=== PATIENT | female | born 1975 | race African-American/Black ===

== ENCOUNTER 2016-10-03 22:41 | Emergency (ER) | payer BC ==
[~2016-10-03] VITALS: Ht 167.6 cm; Wt 129.7 kg
[~2016-10-03 22:41] MED LIST: ASPI81TA9 PO; HYDR-2666; HYDR-2868 PO; Metoprolol Tartrate PO; OLME1TAB3 PO; PROM25TA10
[2016-10-03 22:55] VITALS: BP 189/120
[2016-10-03 23:36] LABS: OBC FLU VALID
--- NOTE | 2016-10-03 23:37 | PHYS DOC ---
Past Medical History Past Medical History: Hypertension Additional Past Medical Histor: miscarriage, cardiomyopathy Past Surgical History: No Surgical History Alcohol Use: None Drug Use: None Adult General Chief Complaint Chief Complaint: COUGH HPI HPI Patient is a 41 year old female who presents to the emergency department stating that since Thursday she's had a cough congestion bilateral ear pain and a headache. She denies any shortness of air difficulty breathing. She is unsure whether she has had any fevers although states that she did when the symptoms first developed. Patient states she's been taken Tylenol for the pain and discomfort. She is unable to take ibuprofen or nonsteroidals due to elevation of blood pressure. Patient denies any sick contact. Patient also states that for the last 2 years around this time she has ended up with pneumonia and she just wants to make sure that this is not occurring. Review of Systems Review of Systems Constitutional: Denies fever or chills [] Eyes: Denies change in visual acuity, redness, or eye pain [] HENT: nasal congestion, bilateral ear pain. Denies sore throat [] Respiratory: cough denies shortness of breath [] Cardiovascular: No additional information not addressed in HPI [] GI: Denies abdominal pain, nausea, vomiting, bloody stools or diarrhea [] : Denies dysuria or hematuria [] Musculoskeletal: Denies back pain or joint pain [] Integument: Denies rash or skin lesions [] Neurologic: Denies headache, focal weakness or sensory changes [] Allergies Allergies Allergies Coded Allergies Type Severity Reaction Last Updated Verified Penicillins Allergy Intermediate 12/01/14 No levofloxacin Allergy Intermediate 12/18/14 No Physical Exam Physical Exam Constitutional: Well developed, well nourished, no acute distress, non-toxic appearance. [] HENT: Normocephalic, atraumatic, bilateral external ears normal, oropharynx moist, no oral exudates, nose normal. Bilateral tympanic membranes appear to be normal although the left appears to be slightly red. Throat with no erythematous no exudate noted. Eyes: PERRLA, EOMI, conjunctiva normal, no discharge. [] Neck: Normal range of motion, no tenderness, supple, no stridor. [] Cardiovascular:Heart rate regular rhythm, no murmur [] Lungs & Thorax: Bilateral breath sounds clear to auscultation [] Skin: Warm, dry, no erythema, no rash. [] Back: No tenderness Extremities: No tenderness, no cyanosis, no clubbing, ROM intact, no edema. [] Neurologic: Alert and oriented X 3, normal motor function, normal sensory function, no focal deficits noted. [] Psychologic: Affect normal, judgement normal, mood normal. [] Current Patient Data Vital Signs Vital Signs Date Time Temp Pulse Resp B/P Pulse Ox O2 Delivery O2 Flow Rate FiO2 10/03/16 22:55 98.3 80 18 97 Room Air 98.3 Lab Values Laboratory Tests Test 10/03/16 23:10 Influenza Type A Antigen Negative (NEGATIVE) Influenza Type B Antigen Negative (NEGATIVE) EKG EKG [] Radiology/Procedures Radiology/Procedures [] Course & Med Decision Making Course & Med Decision Making Pertinent Labs and Imaging studies reviewed. (See chart for details) Influenza swabs were negative. Patient will be placed on Zithromax with recommendations for Tylenol for pain and discomfort. Also recommended following up with her primary care physician in the next 3-5 days. Signs and symptoms to return back to emergency department as been provided. Encourage plenty of fluids. Patient agrees with discharge instructions treatment regimens and follow -up recommendations. [] Dragon Disclaimer Dragon Disclaimer This electronic medical record was generated, in whole or in part, using a voice recognition dictation system. Departure Departure Impression: Primary Impression: Upper respiratory infection Disposition: 01 HOME, SELF-CARE Condition: STABLE Referrals: UNKNOWN PCP NAME (PCP) Patient Instructions: Upper Respiratory Infection, Adult, [id number] Additional Instructions: Activity as tolerated. Tylenol for pain and discomfort. Medication as prescribed. Follow-up through primary care physician in the next 3-5 days. Return back to emergency prior signs symptoms of become worse. Scripts Azithromycin (Zithromax)250 Mg [id number] Mg PO DAILY ANTI-BIOTIC #6 TAB Ref 0 2 tablets today then 1 tablet daily until gone Prov:KAMILLE DON NP 10/03/16 KAMILLE DON NP Oct 03, 2016 23:37
[2016-10-03] MEDS ORDERED: AZIT250T PO (23:49)
[2016-10-04] MEDS ORDERED: ACETAMINOPHEN 500 MG TABLET PO ONE (00:15)
== END 2016-10-04 00:09 | disposition home or self-care (01) ==
LOC: ER 22:41
DX: J06.9 Acute upper respiratory infection, unspecified (principal); H92.03 Otalgia, bilateral; I11.9 Hypertensive heart disease without heart failure; Z88.0 Allergy status to penicillin; Z88.1 Allergy status to other antibiotic agents
CPT/HCPCS: 87804; 99284-25

== ENCOUNTER 2019-08-11 22:22 | Emergency (ER) | payer BC ==
[~2019-08-11] VITALS: Ht 167.6 cm; Wt 129.7 kg
[~2019-08-11 22:22] MED LIST changes: +ASPI-612 PO; -ASPI81TA9 PO; +AZIT250T PO; -HYDR-2666; +HYDR-2761; +OLME1TAB23 PO; -OLME1TAB3 PO
[2019-08-11] MEDS ORDERED: DEXAMETHASONE SOD PHOS 20 MG/5 ML VIAL. IM ONE (23:00)
--- NOTE | 2019-08-11 23:13 | PHYS DOC ---
Past Medical History Past Medical History: Hypertension Additional Past Medical Histor: miscarriage, cardiomyopathy Past Surgical History: No Surgical History Additional Information: Denies smoking Alcohol Use: None Drug Use: None Adult General Chief Complaint Chief Complaint: SORE THROAT HPI HPI Pt is a 44 y/o female with a history of hypertension who presents to the ED with throat pain since last night. She states it hurts the most to swallow and also has pain when opening her mouth or talking. Pt complains of associated left sided lymph node pain that radiates down her neck. Denies taking any medication for relief. She states the pain is a 10/10 when she has to swallow. Review of Systems Review of Systems Constitutional: Denies fever or chills Eyes: Denies redness or eye pain HENT: Reports sore throat and left sided lymph node pain Cardiovascular: Denies chest pain or palpitations GI: Denies abdominal pain, nausea, or vomiting : Denies dysuria or hematuria Musculoskeletal: Denies back pain or joint pain Integument: Denies rash or skin lesions Neurologic: Denies headache, focal weakness or sensory changes Complete systems were reviewed and found to be within normal limits, except as documented in this note. Current Medications Current Medications Current Medications Medications (Trade) Dose Ordered Sig/Jey Start Time Stop Time Status Last Admin Dose Admin Dexamethasone (Decadron) 10 mg 1X ONCE 08/11/19 23:15 08/11/19 23:16 DC 08/11/19 23:13 10 MG Dexamethasone Sodium Phosphate (Decadron) 10 mg 1X ONCE 08/11/19 23:00 08/11/19 23:06 DC Allergies Allergies Allergies Coded Allergies Type Severity Reaction Last Updated Verified Penicillins Allergy Intermediate 12/01/14 No levofloxacin Allergy Intermediate 12/18/14 No Physical Exam Physical Exam Constitutional: Well developed, well nourished, no acute distress, non-toxic appearance HENT: Oropharynx is erythematous with post nasal drip, without exudates, Turbinates swollen bilaterally Eyes: Conjunctiva normal, no discharge Neck: Tenderness to palpation on left side, left sided lymphadenopathy Cardiovascular: Heart rate normal, regular rhythm Lungs & Thorax: Bilateral breath sounds clear to auscultation, no wheezing Skin: Warm, dry, no erythema, no rash Extremities: No tenderness, ROM intact, no edema Neurologic: Alert and oriented X 3, no focal deficits noted Psychologic: Affect normal, judgement normal Current Patient Data Vital Signs Vital Signs Date Time Temp Pulse Resp B/P (MAP) Pulse Ox O2 Delivery O2 Flow Rate FiO2 08/11/19 23:43 215/112 (146) 08/11/19 22:40 98.3 100 18 99 Room Air 98.3 EKG EKG [] Radiology/Procedures Radiology/Procedures [] Course & Med Decision Making Course & Med Decision Making Pt is a 44 y/o female with a history of HTN who presents with left sided lymph node pain, sore throat, painful swallowing. Rapid Strep test was negative. Symptomatic treatment provided with oral steroid. Discharge with Prednisone and given instructions to take doxycycline if symptoms do not improve or if culture is positive. Patient noted to have elevated blood pressure which improved throughout ED stay. Patient advised to monitor blood pressure and follow-up closely with PCP for re-evaluation and possible adjustment of anti-HTN medications. Patient stable for discharge with outpatient follow-up with PCP. Discussed findings and plan with patient and family, who acknowledge understanding and agreement. Dragon Disclaimer Dragon Disclaimer This electronic medical record was generated, in whole or in part, using a voice recognition dictation system. Departure Departure Impression: Primary Impression: Pharyngitis Additional Impression: Hypertension Disposition: 01 HOME, SELF-CARE Condition: STABLE Referrals: CHIP BARBOUR (PCP) Patient Instructions: Hypertension, [id number], Viral and Bacterial Pharyngitis, [id number] Additional Instructions: Hold antibiotics for 48 hours. If symptoms worsen or for fever > 100.3 F after 48 hours then start antibiotics as prescribed. Scripts Prednisone (PREDNISONE) 20 Mg Tablet 2 TAB PO DAILY, #8 TAB Start this prescription tomorrow, Thursday08/12/19 Prov: RADHA SMITH DO 08/11/19 Doxycycline Hyclate (DOXYCYCLINE HYCLATE) 100 Mg Capsule 1 CAP PO BID, #14 CAP Prov: RADHA SMITH DO 08/11/19 Problem Qualifiers Primary Impression: Pharyngitis Pharyngitis/tonsillitis etiology: unspecified etiology Qualified Codes: J02.9 - Acute pharyngitis, unspecified Additional Impression: Hypertension Hypertension type: unspecified Qualified Codes: I10 - Essential (primary) hypertension RADHA SMITH DO Aug 11, 2019 23:13
[2019-08-11] MEDS ORDERED: DEXAMETHASONE 4 MG TABLET PO ONE (23:15)
[2019-08-11] MEDS ORDERED: DOXY100C2 PO (23:34)
[2019-08-11] MEDS ORDERED: PRED20TA PO (23:35)
[2019-08-11 23:43] VITALS: BP 215/112
== END 2019-08-11 23:43 | disposition home or self-care (01) ==
LOC: ER 22:22
DX: J02.9 Acute pharyngitis, unspecified (principal); I10 Essential (primary) hypertension; I42.9 Cardiomyopathy, unspecified
CPT/HCPCS: 87070; 87880; 99283; J8540; 96372

== ENCOUNTER 2020-01-14 22:08 | Inpatient (IN) | payer BC ==
[~2020-01-14] VITALS: Ht 167.6 cm; Wt 130.5 kg
[~2020-01-14 22:08] MED LIST changes: +DOXY100C2 PO; +PRED20TA PO
[2020-01-14] MEDS ORDERED: LABETALOL 20 MG/4 ML DISP.SYRIN. IVP ONE (23:00)
--- NOTE | 2020-01-14 23:07 | PHYS DOC ---
Past Medical History Past Medical History: Hypertension Additional Past Medical Histor: miscarriage, cardiomyopathy Past Surgical History: No Surgical History Smoking Status: Never Smoker Alcohol Use: None Drug Use: None General Adult EDM: Chief Complaint: SORE THROAT HPI: HPI: Patient is a 44 year old female who presents with complaint of feeling like her throat is swollen. She denies any actual sore throat. She states that it also feels dry. She states that is been like that for the last few days and has been taking Claritin without any relief. Patient does admit to a history of high blood pressure and takes her medication as directed. Patient's blood pressure is significantly elevated at 260s over 140s here in the emergency room. She denies any headache, chest pain or shortness of breath.[] Review of Systems: Review of Systems: Constitutional: Denies fever or chills. [] Eyes: Denies change in visual acuity. [] Respiratory: Denies cough or shortness of breath. [] Cardiovascular: Denies chest pain or edema. [] GI: Denies abdominal pain, nausea, vomiting, bloody stools or diarrhea. [] Neurologic: Denies headache, focal weakness or sensory changes. [] A full 10 point review of systems has been reviewed and is otherwise negative. Heart Score: Risk Factors: Risk Factors: DM, Current or recent (<one month) smoker, HTN, HLP, family history of CAD, obesity. Risk Scores: Score 0 - 3: 2.5% MACE over next 6 weeks - Discharge Home Score 4 - 6: 20.3% MACE over next 6 weeks - Admit for Clinical Observation Score 7 - 10: 72.7% MACE over next 6 weeks - Early Invasive Strategies Current Medications: Current Medications Medications (Trade) Dose Ordered Sig/[facility] Start Time Stop Time Status Last Admin Dose Admin Labetalol HCl (Normodyne Iv Push) 20 mg 1X ONCE 01/14/20 23:00 01/14/20 23:01 DC Allergies: Allergies: Allergies Coded Allergies Type Severity Reaction Last Updated Verified Penicillins Allergy Intermediate 12/01/14 No levofloxacin Allergy Intermediate 12/18/14 No Physical Exam: PE: Constitutional: Well developed, well nourished, no acute distress, non-toxic appearance. [] HENT: Normocephalic, atraumatic, bilateral external ears normal, oropharynx moist, no oral exudates, nose normal. [] Eyes: PERRLA, EOMI, conjunctiva normal, no discharge. [] Neck: Normal range of motion, no tenderness, supple, no stridor. [] Cardiovascular: Regular rate and rhythm[] Lungs & Thorax: Bilateral breath sounds clear to auscultation [] Abdomen: Bowel sounds normal, soft, no tenderness. [] Skin: Warm, dry, no erythema, no rash. [] Extremities: No tenderness, no cyanosis, no clubbing, ROM intact. [] Neurologic: Alert and oriented X 3, no focal deficits noted. [] EKG: EKG: [] Radiology/Procedures: Radiology/Procedures: [] Impression: PROCEDURE: PORTABLE CHEST 1V PORTABLE CHEST 1V Clinical Indication: Elevated blood pressure Comparison: Two-view chest, 12/11/2015. Findings: The cardiomediastinal silhouette is normal allowing for technique. Lungs are clear. There is no pneumothorax. No pleural effusion is appreciated. No acute bone abnormality. IMPRESSION: No acute cardiopulmonary process. Electronically signed by: Fortino Young MD (01/14/2020 11:18 PM) [id number] Course & Med Decision Making: Course & Med Decision Making Pertinent Labs and Imaging studies reviewed. (See chart for details) [] Dragon Disclaimer: Dragon Disclaimer: This electronic medical record was generated, in whole or in part, using a voice recognition dictation system. Departure Departure Impression: Primary Impression: Malignant essential hypertension Disposition: ADMITTED INPATIENT Admitting Physician: BRENNEN Condition: IMPROVED Referrals: CHIP BARBOUR (PCP) ISRAEL PUGH Jr. DO January 14, 2020 23:07
--- NOTE | 2020-01-14 23:21 | RAD ---
PORTABLE CHEST 1V Clinical Indication: Elevated blood pressure Comparison: Two-view chest, 12/11/2015. Findings: The cardiomediastinal silhouette is normal allowing for technique. Lungs are clear. There is no pneumothorax. No pleural effusion is appreciated. No acute bone abnormality. IMPRESSION: No acute cardiopulmonary process. Electronically signed by: Fortino Young MD (01/14/2020 11:18 PM) [id number]
[2020-01-14 23:36] LABS: BASO % 1 % (0-3); EOS # 0.2 x10^3/uL (0.0-0.7); EOS % 4 % (0-3); HEMATOCRIT 34.9 % (36.0-47.0); HEMOGLOBIN 11.4 g/dL (12.0-15.5); LYMPH # 1.9 x10^3/uL (1.0-4.8); LYMPH % 34 % (24-48); MEAN CORPUSCULAR HEMOGLOBIN 28 pg (25-35); MEAN CORPUSCULAR HGB CONC 33 g/dL (31-37); MEAN CORPUSCULAR VOLUME 86 fL (79-100); MONO # 0.7 x10^3/uL (0.0-1.1); MONO % 12 % (0-9); NEUT # 2.8 x10^3/uL (1.8-7.7); NEUT % 50 % (31-73); PLATELET COUNT 293 x10^3/uL (140-400); RED BLOOD COUNT 4.07 x10^6/uL (3.50-5.40); RED CELL DISTRIBUTION WIDTH 16.4 % (11.5-14.5); WHITE BLOOD COUNT 5.6 x10^3/uL (4.0-11.0)
[2020-01-14 23:49] LABS: CREATININE 1.2 mg/dL (0.6-1.0); GFR 58.5; POTASSIUM 3.7 mmol/L (3.5-5.1)
[2020-01-14 23:55] LABS: ALBUMIN 3.6 g/dL (3.4-5.0); ALBUMIN/GLOBULIN RATIO 0.8 (1.0-1.7); MAGNESIUM 1.8 mg/dL (1.8-2.4); TOTAL BILIRUBIN 0.2 mg/dL (0.2-1.0); TOTAL PROTEIN 7.9 g/dL (6.4-8.2)
[2020-01-15] VITALS (15 sets, daily range): BP systolic 139–229; BP diastolic 83–143
[2020-01-15] MEDS ORDERED: LABETALOL 20 MG/4 ML DISP.SYRIN. IVP ONE (00:45)
[2020-01-15] MEDS ORDERED: MORPHINE SULFATE 2 MG/ML VIAL. IV PRN (01:00)
[2020-01-15] MEDS ORDERED: ONDANSETRON PF 4 MG/2 ML VIAL. IV PRN (01:00)
[2020-01-15] MEDS: LABETALOL 20 MG/4 ML DISP.SYRIN. IVP PRN ×2 (03:25→21:00)
--- NOTE | 2020-01-15 03:26 | NUR ---
Pt arrived to room 206 per wc pt oriented to surroundings and call light vs obtained pt bp elevated.Assessment completed pt denied pain at this time poc explained will resume care and continue to monitor pt. Will give labetalol for elevated pressure. call light in reach.
[2020-01-15] MEDS ORDERED: HYDR25TA10 PO (03:35)
[2020-01-15] MEDS ORDERED: VALS320T2 PO (03:35)
[2020-01-15] MEDS ORDERED: LORA10CA PO (04:08)
--- NOTE | 2020-01-15 05:21 | NUR ---
Call placed to Dr. Mariscal re:pt Bp [id number] after labetalol 10mg iv need for further bp medication.
--- NOTE | 2020-01-15 05:44 | NUR ---
2nd page placed to for further orders re: Bp 226/[id number]
[2020-01-15] MEDS ORDERED: FUROSEMIDE 40 MG/4 ML VIAL. IVP ONE (06:00)
--- NOTE | 2020-01-15 06:00 | NUR ---
Dr. Mariscal returned call orders received.
[2020-01-15] MEDS: FLUTICASONE 50MCG/NASAL SPRAY 16GM BOTTLE. NS SCH (12:21)
[2020-01-15] MEDS: hydroCHLOROthiazide 25 MG TABLET PO SCH (12:22)
[2020-01-15] MEDS: ACETAMINOPHEN 325 MG TABLET. PO PRN (12:22)
[2020-01-15] MEDS: CETIRIZINE HCL 10 MG TABLET. PO SCH (12:22)
[2020-01-15] MEDS: amLODIPine BESYLATE 5 MG TABLET PO SCH (12:23)
[2020-01-15] MEDS: LOSARTAN POTASSIUM 50 MG TABLET. PO SCH (12:24)
--- NOTE | 2020-01-15 12:41 | PDOC2 ---
CONSULT Date of Consult Date of Consult DATE: 01/15/20 TIME: 12:35 Reason for Consult Reason for Consult: Malignant hypertension Referring Physician Referring Physician: Dr. Mariscal Identification/Chief Complaint Chief Complaint Swollen throat Source Source: Chart review, Patient History of Present Illness Reason for Visit: The patient is a 44-year-old female who was initially seen in the emergency room last night for a chief complaint of a swollen throat. During her work-up she was found to have a blood pressure of 260/140. Chest x-ray showed no acute process. Lab was significant for creatinine of 1.2 and a TSH of 2.109. Patient was admitted and placed on a Cardene drip. Overnight she has remained stable. For the lab testing shows minimally elevated troponins at 0.031 and 0.026. Patient has been treated at home for hypertension with hydrochlorothiazide 25 mg a day and Diovan 320 mg a day. She denies chest pain or shortness of breath. She denies a history of coronary disease or congestive heart failure. Past Medical History Cardiovascular: HTN Past Surgical History Past Surgical History: Other (miscarriage) Family History Family History: Hypertension Social History No ALCOHOL: none Current Problem List Problem List Problems Medical Problems: (1) Malignant essential hypertension Status: Acute Current Medications Current Medications Current Medications Labetalol HCl (Normodyne Iv Push) 20 mg 1X ONCE IVP Last administered on 01/14/20at 23:28; Start 01/14/20 at 23:00; Stop 01/14/20 at 23:01; Status DC Labetalol HCl (Normodyne Iv Push) 10 mg 1X ONCE IVP Last administered on 01/15/20at 01:04; Start 01/15/20 at 00:45; Stop 01/15/20 at 00:46; Status DC Ondansetron HCl (Zofran) 4 mg PRN Q8HRS PRN IV NAUSEA/VOMITING; Start 01/15/20 at 01:00; Stop 01/16/20 at 00:59 Morphine Sulfate (Morphine Sulfate) 2 mg PRN Q2HR PRN IV PAIN; Start 01/15/20 at 01:00; Stop 01/16/20 at 00:59 Labetalol HCl (Normodyne Iv Push) 10 mg PRN Q4HRS PRN IVP SBP > 190 Last administered on 01/15/20at 03:25; Start 01/15/20 at 01:15 Nicardipine HCl 50 mg/Sodium Chloride 250 ml @ 25 mls/hr CONT PRN IV SEE I/O RECORD Last administered on 01/15/20 06:23; Start 01/15/20 at 06:00; Stop 01/15/20 at 11:37; Status DC Furosemide (Lasix) 40 mg 1X ONCE IVP Last administered on 01/15/20at 06:13; Start 01/15/20 at 06:00; Stop 01/15/20 at 06:03; Status DC Hydrochlorothiazide (Hydrodiuril) 25 mg DAILY PO Last administered on 01/15/20 12:22; Start 01/15/20 at 12:00 Cetirizine HCl (ZyrTEC) 10 mg DAILY PO Last administered on 01/15/20 12:22; Start 01/15/20 at 12:00 Losartan Potassium (Cozaar) 100 mg DAILY PO Last administered on 01/15/20at 12:24; Start 01/15/20 at 12:00 Acetaminophen (Tylenol) 650 mg PRN Q6HRS PRN PO PAIN Last administered on 01/15/20 12:22; Start 01/15/20 at 12:00 Amlodipine Besylate (Norvasc) 5 mg DAILY PO Last administered on 01/15/20 12:23; Start 01/15/20 at 12:00 Montelukast Sodium (Singulair) 10 mg QHS PO ; Start 01/15/20 at 21:00 Fluticasone Propionate (Flonase) 2 spray DAILY NS Last administered on 01/15/20at 12:21; Start 01/15/20 at 12:00 Active Scripts Active Reported Claritin (Loratadine) 10 Mg Capsule 1 Cap PO DAILY 30 Days Diovan (Valsartan) 320 Mg Tablet 320 Mg PO DAILY Hydrochlorothiazide 25 Mg Tablet 25 Mg PO DAILY Allergies Allergies: Coded Allergies: Penicillins (Unverified Allergy, Intermediate, 12/01/14) levofloxacin (Unverified Allergy, Intermediate, 12/18/14) " after 7 days of taking it, I swelled up and felt horrible, and they told me to stop taking it" ROS General: YES: Fatigue HEENT: YES: Other (Resolving throat swelling) Physical Exam General: No acute distress HEENT: Atraumatic Lungs: Clear to auscultation Heart: Regular rate Abdomen: Normal bowel sounds Vitals VITALS Vital Signs Date Time Temp Pulse Resp B/P (MAP) Pulse Ox O2 Delivery O2 Flow Rate FiO2 01/15/20 12:24 184/109 01/15/20 11:00 98.0 94 20 96 Room Air 98.0 Labs Labs Laboratory Tests Test 01/14/20 23:10 01/15/20 06:45 White Blood Count 5.6 x10^3/uL (4.0-11.0) Red Blood Count 4.07 x10^6/uL (3.50-5.40) Hemoglobin 11.4 g/dL (12.0-15.5) Hematocrit 34.9 % (36.0-47.0) Mean Corpuscular Volume 86 fL (79-100) Mean Corpuscular Hemoglobin 28 pg (25-35) Mean Corpuscular Hemoglobin Concent 33 g/dL (31-37) Red Cell Distribution Width 16.4 % (11.5-14.5) Platelet Count 293 x10^3/uL (140-400) Neutrophils (%) (Auto) 50 % (31-73) Lymphocytes (%) (Auto) 34 % (24-48) Monocytes (%) (Auto) 12 % (0-9) Eosinophils (%) (Auto) 4 % (0-3) Basophils (%) (Auto) 1 % (0-3) Neutrophils # (Auto) 2.8 x10^3/uL (1.8-7.7) Lymphocytes # (Auto) 1.9 x10^3/uL (1.0-4.8) Monocytes # (Auto) 0.7 x10^3/uL (0.0-1.1) Eosinophils # (Auto) 0.2 x10^3/uL (0.0-0.7) Basophils # (Auto) 0.0 x10^3/uL (0.0-0.2) Sodium Level 139 mmol/L (136-145) Potassium Level 3.7 mmol/L (3.5-5.1) Chloride Level 102 mmol/L (98-107) Carbon Dioxide Level 30 mmol/L (21-32) Anion Gap 7 (6-14) Blood Urea Nitrogen 14 mg/dL (7-20) Creatinine 1.2 mg/dL (0.6-1.0) Estimated GFR (Cockcroft-Gault) 58.5 BUN/Creatinine Ratio 12 (6-20) Glucose Level 136 mg/dL (70-99) Calcium Level 9.0 mg/dL (8.5-10.1) Magnesium Level 1.8 mg/dL (1.8-2.4) Total Bilirubin 0.2 mg/dL (0.2-1.0) Aspartate Amino Transf (AST/SGOT) 15 U/L (15-37) Alanine Aminotransferase (ALT/SGPT) 16 U/L (14-59) Alkaline Phosphatase 98 U/L (46-116) Troponin I Quantitative 0.031 ng/mL (0.000-0.055) 0.026 ng/mL (0.000-0.055) Total Protein 7.9 g/dL (6.4-8.2) Albumin 3.6 g/dL (3.4-5.0) Albumin/Globulin Ratio 0.8 (1.0-1.7) Thyroid Stimulating Hormone (TSH) 2.109 uIU/mL (0.358-3.74) Laboratory Tests Test 01/14/20 23:10 01/15/20 06:45 White Blood Count 5.6 x10^3/uL (4.0-11.0) Red Blood Count 4.07 x10^6/uL (3.50-5.40) Hemoglobin 11.4 g/dL (12.0-15.5) Hematocrit 34.9 % (36.0-47.0) Mean Corpuscular Volume 86 fL (79-100) Mean Corpuscular Hemoglobin 28 pg (25-35) Mean Corpuscular Hemoglobin Concent 33 g/dL (31-37) Red Cell Distribution Width 16.4 % (11.5-14.5) Platelet Count 293 x10^3/uL (140-400) Neutrophils (%) (Auto) 50 % (31-73) Lymphocytes (%) (Auto) 34 % (24-48) Monocytes (%) (Auto) 12 % (0-9) Eosinophils (%) (Auto) 4 % (0-3) Basophils (%) (Auto) 1 % (0-3) Neutrophils # (Auto) 2.8 x10^3/uL (1.8-7.7) Lymphocytes # (Auto) 1.9 x10^3/uL (1.0-4.8) Monocytes # (Auto) 0.7 x10^3/uL (0.0-1.1) Eosinophils # (Auto) 0.2 x10^3/uL (0.0-0.7) Basophils # (Auto) 0.0 x10^3/uL (0.0-0.2) Sodium Level 139 mmol/L (136-145) Potassium Level 3.7 mmol/L (3.5-5.1) Chloride Level 102 mmol/L (98-107) Carbon Dioxide Level 30 mmol/L (21-32) Anion Gap 7 (6-14) Blood Urea Nitrogen 14 mg/dL (7-20) Creatinine 1.2 mg/dL (0.6-1.0) Estimated GFR (Cockcroft-Gault) 58.5 BUN/Creatinine Ratio 12 (6-20) Glucose Level 136 mg/dL (70-99) Calcium Level 9.0 mg/dL (8.5-10.1) Magnesium Level 1.8 mg/dL (1.8-2.4) Total Bilirubin 0.2 mg/dL (0.2-1.0) Aspartate Amino Transf (AST/SGOT) 15 U/L (15-37) Alanine Aminotransferase (ALT/SGPT) 16 U/L (14-59) Alkaline Phosphatase 98 U/L (46-116) Troponin I Quantitative 0.031 ng/mL (0.000-0.055) 0.026 ng/mL (0.000-0.055) Total Protein 7.9 g/dL (6.4-8.2) Albumin 3.6 g/dL (3.4-5.0) Albumin/Globulin Ratio 0.8 (1.0-1.7) Thyroid Stimulating Hormone (TSH) 2.109 uIU/mL (0.358-3.74) Images Images Chest x-ray with no acute process. Assessment/Plan Assessment/Plan 1. Malignant hypertension. Patient has been treated with Cardene overnight and has improved. Earlier today she has been started on oral Norvasc as well as Cozaar. Will taper IV medications as tolerated and patient will probably require an increase in Norvasc. We will check a renal ultrasound. We will also check a echocardiogram to look at LV function as well as wall thickness in the setting of a history of hypertension and severely elevated blood pressure last night 2. Minimally elevated troponin at a peak of 0.031. Demand ischemia secondary to the patient's malignant hypertension. 3. Mildly elevated creatinine at 1.2. Will recheck lab in the morning. Thank you for allowing us to participate in the care of your patient. EMILY CAI MD January 15, 2020 12:41
[2020-01-15] MEDS ORDERED: traZODone 50 MG TABLET. PO PRN (13:00)
--- NOTE | 2020-01-15 13:36 | PDOC ---
Provider Note Provider Note History and physical [id number] REGAN WILDER MD January 15, 2020 13:36
--- NOTE | 2020-01-15 16:05 | HP ---
ADMIT DATE: 01/15/2020 HISTORY OF PRESENT ILLNESS: This patient is a donnie 44-year-old woman who is a continuity outpatient of Dr. Mora, who is the team health hospitalist here at [facility]. I am rounding for them this weekend. The patient presented to the Emergency Department last night with a sensation of throat fullness. She tells me that she has had this happened to her several times in the past when her seasonal allergies kicked up. She has been having a lot of clear nasal and sinus secretions that she has attributed to her allergies, and when her throat became more swollen and full last night, she decided to go ahead and present to the Emergency Department. She denies any fever, chills, cough, chest pain, palpitations, or any other new specific constitutional symptoms. She has been using her Claritin, but that did not allow her to get on top of her symptoms. 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 She feels that she has just not been handling everything well and that did not help with these symptoms. She lives with her mother and 3 teenage children, all of whom are sheltering in place without being out and about. She feels that her risk of COVID-19 is low. She was found to be very hypertensive in the Emergency Department on evaluation and was admitted for more aggressive treatment. She had not had any recent travel or exposure to any new potential allergens. She and her family have been cooking and eating similar food to their usual diet. All other systems are reviewed and are negative. PAST MEDICAL HISTORY: 1. Hypertension with very high levels at times. 2. Obesity. 3. Seasonal allergies. 4. Generalized anxiety. MEDICATIONS: Please see the medication reconciliation form. SOCIAL HISTORY: The patient is single. She lives with her mother and teenage children who are healthy. She does not take any tobacco, alcohol or illicit drugs. 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 FAMILY HISTORY: Reviewed in full and is noncontributory to the present illness. PHYSICAL EXAMINATION: VITAL SIGNS: Reviewed since admission and are notable for that the patient has been afebrile. Blood pressure has been in the 160s-180s/110 on admission. Heart rate is in the 90s and regular. She is breathing comfortably and saturating normally on room air. GENERAL: The patient is a pleasant 44-year-old woman, alert and oriented x 3, in no acute distress. HEENT: Unremarkable. NECK: Soft and supple. No adenopathy or thyromegaly noted. CHEST: Clear to auscultation. HEART: S1, S2 normal. Regular rate and rhythm. No murmurs, rubs or gallops are noted. ABDOMEN: Obese, soft, nontender, nondistended. No masses or organomegaly noted. EXTREMITIES: Unremarkable. LABORATORY DATA AND OTHER STUDIES: Admission white count is 5.6, hemoglobin is 11.4 consistent with her baseline, platelet count is 293. Chemistry panel is notable for an admission creatinine of 1.2 that was not repeated this morning. Random glucose last evening was 136. TSH is 2.1. Chest x-ray is unremarkable for acute abnormality. EKG was not done on this admission. There was an admission 5 years ago for similar presentation and echo and EKG were done at that point and unremarkable for acute abnormality. Incomplete right bundle branch block was noted. Mild concentric left ventricular hypertrophy was also noted. ASSESSMENT: The patient is a 44-year-old woman with seasonal allergies and a feeling of throat fullness in the setting of nasal discharge who presented to the Emergency Department for care and found to have severely elevated blood pressure consistent with malignant hypertension. Cardiology has already seen the patient and their assistance is appreciated. The patient did have a mild troponin release, which was attributed to demand ischemia from the severe hypertension. She was treated overnight with Cardene drip and responded well to that. We are adding amlodipine to her regimen. The patient is agreeable to staying overnight to ensure that her blood pressure responds well to the oral regimen. I have added Singulair and nasal steroid treatment to her allergies. PLAN: Hoping to help her feel more comfortable day to day which should also reduce her blood pressure. The patient does seem to be quite anxious about the situational stress of the pandemic. She may benefit from low-dose antidepressant with sparing use of anxiolytic as needed depending on her progress. I will defer to her continuity primary care for that decision making. She is already feeling better today. Observation status is most appropriate as we anticipate a length of stay of 1-2 midnights while we work this through. She is up and moving about the room and does not need anything else for DVT prophylaxis. We will also need to work with her on heart healthy diet and regular physical activity which should also help mood and cardiovascular risk. REGAN WILDER MD DR: SKY/dl JOB#: [id number] / [id number] POWER Be MD
[2020-01-15] MEDS: MONTELUKAST SODIUM 10 MG TABLET. PO SCH (21:00)
[2020-01-16] VITALS (8 sets, daily range): BP systolic 154–187; BP diastolic 78–135
[2020-01-16 03:41] LABS: BASO # 0.1 x10^3/uL (0.0-0.2); BASO % 1 % (0-3); EOS # 0.2 x10^3/uL (0.0-0.7); EOS % 4 % (0-3); HEMOGLOBIN 11.5 g/dL (12.0-15.5); LYMPH # 1.7 x10^3/uL (1.0-4.8); LYMPH % 32 % (24-48); MEAN CORPUSCULAR HEMOGLOBIN 28 pg (25-35); MEAN CORPUSCULAR HGB CONC 33 g/dL (31-37); MEAN CORPUSCULAR VOLUME 86 fL (79-100); MONO # 0.7 x10^3/uL (0.0-1.1); MONO % 13 % (0-9); NEUT # 2.7 x10^3/uL (1.8-7.7); NEUT % 50 % (31-73); PLATELET COUNT 308 x10^3/uL (140-400); RED BLOOD COUNT 4.09 x10^6/uL (3.50-5.40); RED CELL DISTRIBUTION WIDTH 16.5 % (11.5-14.5); WHITE BLOOD COUNT 5.4 x10^3/uL (4.0-11.0)
[2020-01-16] MEDS: LABETALOL 20 MG/4 ML DISP.SYRIN. IVP PRN ×3 (03:45→20:44)
[2020-01-16 04:11] LABS: ALBUMIN 3.2 g/dL (3.4-5.0); ALBUMIN/GLOBULIN RATIO 0.8 (1.0-1.7); CALCIUM 8.9 mg/dL (8.5-10.1); GFR 72.2; MAGNESIUM 1.8 mg/dL (1.8-2.4); POTASSIUM 3.4 mmol/L (3.5-5.1); TOTAL BILIRUBIN 0.4 mg/dL (0.2-1.0); TOTAL PROTEIN 7.2 g/dL (6.4-8.2)
--- NOTE | 2020-01-16 08:08 | EKG ---
[facility] [address] [place] [address] Test Date: 2020-01-14 Test Time: 23:42:49 Pat Name: OH REBOLLAR Department: Room: 206 1 Gender: F Aquaculturist: : 1975 Requested By: ISRAEL PUGH Order Number: [id number] Reading MD: Braeden Read Measurements Intervals [place] Rate: 86 P: -12 IL: 188 QRS: -32 QRSD: 84 T: 66 QT: 380 QTc: 458 Interpretive Statements SINUS RHYTHM LEFT ATRIAL ABNORMALITY ABNORMAL LEFT AXIS DEVIATION LEFT ANTERIOR FASCICULAR BLOCK INCOMPLETE RIGHT BUNDLE BRANCH BLOCK QRS(T) CONTOUR ABNORMALITY CONSIDER ANTEROSEPTAL MYOCARDIAL DAMAGE T ABNORMALITY IN HIGH LATERAL LEADS ABNORMAL ECG Electronically Signed On 01-16-2020 8:57:46 CDT by Braeden Read
[2020-01-16] MEDS: CETIRIZINE HCL 10 MG TABLET. PO SCH (08:23)
[2020-01-16] MEDS: LOSARTAN POTASSIUM 50 MG TABLET. PO SCH (08:23)
[2020-01-16] MEDS: amLODIPine BESYLATE 5 MG TABLET PO SCH (08:24)
[2020-01-16] MEDS: hydroCHLOROthiazide 25 MG TABLET PO SCH (08:24)
[2020-01-16] MEDS: FLUTICASONE 50MCG/NASAL SPRAY 16GM BOTTLE. NS SCH (08:26)
--- NOTE | 2020-01-16 09:22 | RAD ---
MR#: [id number] Date of Study: 01/16/2020 Ordering Physician: EMILY CIA, Referring Physician: EMILY CAI, Tech: Giovanni Cronin MBA, RDMS, RVT, RDCS, RTR APPROVED REPORT Patient Location: IN-PATIENT Indications Uncontrolled HTN Renal Artery Doppler Right Renal Artery Left Renal Arter y Proximal 43.0/7.0 cm/secProximal 94.0/29.0 cm/sec Mid 75.0/25.0 cm/secMid 57.0/17.0 cm/sec Distal 61.0/20.0 cm/secDistal 62.0/25.0 cm/sec Renal/Aorta Ratio 0.58Renal/Aorta Ratio 0.73 Prox. Resistive Index 0.83Prox. Resistive Index 0.69 Mid Resistive Index 0.66Mid Resistive Index 0.70 Distal Resistive Index 0.67Distal Resistive Index 0.60 Rt. Segmental A. 21.0/7.0 cm/secLt. Segmental A. 39.0/12.0 cm/sec Renal Measurements RightLeft Kidney Tislyb01.4 cm cmKidney Jthheb54.3 cm cm Right Additional FindingsLeft Additional Findings Aortic Doppler VelocityWaveform Proximal Aorta 128.0 cm/sec Findings Grayscale images of the bilateral kidneys and aorta are grossly unremarkable. The images are slightl y suboptimal. The aorta appears to be mildly calcified without any focal obstructive plaque. Spectral waveforms of the aorta are within normal limits. Spectral waveforms are limited of the bilateral renal arteries but grossly no obvious renal artery st enosis is identified. Critical Notification Critical Value: No <Conclusion> 1. No significant renal artery stenosis bilaterally. Signed by : Hunter Morales, Electronically Approved : 01/16/2020 09:21:38
--- NOTE | 2020-01-16 10:17 | CARD ---
MR#: [id number] Date of Study: 01/16/2020 Ordering Physician: EMILY CAI, Referring Physician: EMILY CAI, Tech: Naina Arenas ROSE MARIE APPROVED REPORT EXAM: Two-dimensional and M-mode echocardiogram with Doppler and color Doppler. Other Information Quality : Good INDICATION Hypertension/HCVD RISK FACTORS Hypertension 2D DIMENSIONS RVDd2.6 (2.9-3.5cm)Left Atrium(2D)3.9 (1.6-4.0cm) IVSd2.2 (0.7-1.1cm)Aortic Root(2D)2.9 (2.0-3.7cm) LVDd3.1 (3.9-5.9cm)LVOT Diameter2.3 (1.8-2.4cm) PWd1.5 (0.7-1.1cm)LVDs1.9 (2.5-4.0cm) FS (%) 37.9 %SV26.9 ml LVEF(%)60.0 (>50%) Aortic Valve AoV Peak Faisal.116.4cm/sAoV VTI19.1cm AO Peak GR.5.4mmHgLVOT Peak Faisal.116.6cm/s AO Mean GR.4mmHgAVA (VMAX)4.32cm2 JAY (VTI)4.50cm2 Mitral Valve MV E Iyprbfmq64.2cm/sMV DECEL [id number] MV A Fuwgadar909.6cm/sE/A Ratio0.6 Pulmonary Vein S1 Kxsgmdxw18.5cm/sD2 Yxcoezby48.9cm/s LEFT VENTRICLE The left ventricle is normal size. There is moderate concentric left ventricular hypertrophy. The lef t ventricular systolic function is normal. The Ejection Fraction is 65%. There is normal LV segmental wall motion. Transmitral Doppler flow pattern is Grade I-abnormal relaxation pattern. RIGHT VENTRICLE The right ventricle is normal size. The right ventricular systolic function is normal. ATRIA The left atrium size is normal. The right atrium size is normal. The interatrial septum is intact wit h no evidence for an atrial septal defect or patent foramen ovale as noted on 2-D or Doppler imaging. AORTIC VALVE The aortic valve is normal in structure and function. Doppler and Color Flow revealed no significant aortic regurgitation. There is no significant aortic valvular stenosis. MITRAL VALVE The mitral valve is normal in structure and function. There is no evidence of mitral valve prolapse. There is no mitral valve stenosis. Doppler and Color-flow revealed trace mitral regurgitation. TRICUSPID VALVE The tricuspid valve is normal in structure and function. Doppler and Color Flow revealed no tricuspid valve regurgitation noted. There is no tricuspid valve stenosis. PULMONIC VALVE The pulmonic valve is not well visualized. Doppler and Color Flow revealed no pulmonic valvular regur gitation. There is no pulmonic valvular stenosis. GREAT VESSELS The aortic root is normal in size. The ascending aorta is normal in size. The IVC is normal in size a nd collapses >50% with inspiration. PERICARDIAL EFFUSION There is no evidence of significant pericardial effusion. Critical Notification Critical Value: No <Conclusion> The left ventricular systolic function is normal. The Ejection Fraction is 65%. There is normal LV segmental wall motion. There is moderate concentric left ventricular hypertrophy. Transmitral Doppler flow pattern is Grade I-abnormal relaxation pattern. Doppler and Color-flow revealed trace mitral regurgitation. There is no evidence of significant pericardial effusion. Signed by : Braeden Read, Electronically Approved : 01/16/2020 10:17:20
--- NOTE | 2020-01-16 11:51 | PDOC ---
PROGRESS NOTES Subjective Subjective Denied any chest pain or shortness of breath Objective Objective Vital Signs Date Time Temp Pulse Resp B/P (MAP) Pulse Ox O2 Delivery O2 Flow Rate FiO2 01/16/20 11:00 98.3 83 22 181/103 (129) 95 Room Air 98.3 Intake and Output 01/16/20 07:00 Intake Total 1150 ml Output Total 800 ml Balance 350 ml Intake Oral 1150 ml Output Urine Total 800 ml # Voids 5 Physical Exam Abdomen: Normal bowel sounds Heart: Regular rate General: No acute distress HEENT: Atraumatic Lungs: Clear to auscultation Assessment Assessment 1. Malignant hypertension. Blood pressure continues to be elevated. Presently off Cardene drip. Renal arterial duplex scan did not show any significant renal artery stenosis. 2D echo showed normal LV systolic function. Continue losartan and hydrochlorothiazide. Increase Norvasc to 10 mg daily. 2. Minimally elevated troponin level, most probably demand ischemia secondary to uncontrolled hypertension. 2D echo did not show any wall motion abnormalities. We will consider ischemic evaluation as an outpatient. Plan Plan of Care Problems Medical Problems: (1) Malignant essential hypertension Status: Acute Comment Review of Relevant I have reviewed the following items kylie (where applicable) has been applied. Labs Laboratory Tests Test 01/16/20 03:20 White Blood Count 5.4 x10^3/uL (4.0-11.0) Red Blood Count 4.09 x10^6/uL (3.50-5.40) Hemoglobin 11.5 g/dL (12.0-15.5) Hematocrit 35.0 % (36.0-47.0) Mean Corpuscular Volume 86 fL (79-100) Mean Corpuscular Hemoglobin 28 pg (25-35) Mean Corpuscular Hemoglobin Concent 33 g/dL (31-37) Red Cell Distribution Width 16.5 % (11.5-14.5) Platelet Count 308 x10^3/uL (140-400) Neutrophils (%) (Auto) 50 % (31-73) Lymphocytes (%) (Auto) 32 % (24-48) Monocytes (%) (Auto) 13 % (0-9) Eosinophils (%) (Auto) 4 % (0-3) Basophils (%) (Auto) 1 % (0-3) Neutrophils # (Auto) 2.7 x10^3/uL (1.8-7.7) Lymphocytes # (Auto) 1.7 x10^3/uL (1.0-4.8) Monocytes # (Auto) 0.7 x10^3/uL (0.0-1.1) Eosinophils # (Auto) 0.2 x10^3/uL (0.0-0.7) Basophils # (Auto) 0.1 x10^3/uL (0.0-0.2) Sodium Level 138 mmol/L (136-145) Potassium Level 3.4 mmol/L (3.5-5.1) Chloride Level 101 mmol/L (98-107) Carbon Dioxide Level 30 mmol/L (21-32) Anion Gap 7 (6-14) Blood Urea Nitrogen 12 mg/dL (7-20) Creatinine 1.0 mg/dL (0.6-1.0) Estimated GFR (Cockcroft-Gault) 72.2 BUN/Creatinine Ratio 12 (6-20) Glucose Level 102 mg/dL (70-99) Calcium Level 8.9 mg/dL (8.5-10.1) Magnesium Level 1.8 mg/dL (1.8-2.4) Total Bilirubin 0.4 mg/dL (0.2-1.0) Aspartate Amino Transf (AST/SGOT) 17 U/L (15-37) Alanine Aminotransferase (ALT/SGPT) 14 U/L (14-59) Alkaline Phosphatase 77 U/L (46-116) Total Protein 7.2 g/dL (6.4-8.2) Albumin 3.2 g/dL (3.4-5.0) Albumin/Globulin Ratio 0.8 (1.0-1.7) Medications Current Medications Acetaminophen (Tylenol) 650 mg PRN Q6HRS PRN PO PAIN Last administered on 01/15/20 12:22; Start 01/15/20 at 12:00 Amlodipine Besylate (Norvasc) 5 mg DAILY PO Last administered on 01/16/20at 08:24; Start 01/15/20 at 12:00 Cetirizine HCl (ZyrTEC) 10 mg DAILY PO Last administered on 01/16/20at 08:23; Start 01/15/20 at 12:00 Fluticasone Propionate (Flonase) 2 spray DAILY NS Last administered on 01/16/20at 08:26; Start 01/15/20 at 12:00 Hydrochlorothiazide (Hydrodiuril) 25 mg DAILY PO Last administered on 01/16/20at 08:24; Start 01/15/20 at 12:00 Losartan Potassium (Cozaar) 100 mg DAILY PO Last administered on 01/16/20at 08:23; Start 01/15/20 at 12:00 Montelukast Sodium (Singulair) 10 mg QHS PO Last administered on 01/15/20at 21:00; Start 01/15/20 at 21:00 Trazodone HCl (Desyrel) 50 mg PRN QHS PRN PO INSOMNIA; Start 01/15/20 at 13:00 Vitals/I & O Vital Sign - Last 24 Hours 01/15/20 01/15/20 01/15/20 01/15/20 12:23 12:24 13:36 15:00 Temp 98.0 98.0 Pulse 98 91 Resp 20 B/P (MAP) 184/109 184/109 139/83 (101) 151/85 (107) Pulse Ox 93 O2 Delivery Room Air 01/15/20 01/15/20 01/15/20 01/15/20 17:57 19:33 20:00 21:00 Temp 97.8 97.8 Pulse 91 91 Resp 20 B/P (MAP) 175/98 (123) 191/100 (130) 191/100 Pulse Ox 94 O2 Delivery Room Air Room Air 01/15/20 01/16/20 01/16/20 01/16/20 23:14 03:41 03:45 07:00 Temp 97.7 98.7 97.4 97.7 98.7 97.4 Pulse 77 79 79 79 Resp 18 22 22 B/P (MAP) 154/97 (116) 169/106 (127) 169/106 177/101 (126) Pulse Ox 98 95 95 O2 Delivery Room Air Room Air Room Air 01/16/20 01/16/20 01/16/20 01/16/20 08:00 08:23 08:24 11:00 Temp 98.3 98.3 Pulse 79 79 83 Resp 22 B/P (MAP) 177/101 177/101 181/103 (129) Pulse Ox 95 O2 Delivery Room Air Room Air Intake and Output 01/15/20 01/15/20 01/16/20 15:00 23:00 07:00 Intake Total 550 ml 400 ml 200 ml Output Total 800 ml Balance -250 ml 400 ml 200 ml ADELSO ALVARADO MD January 16, 2020 11:51
[2020-01-16] MEDS ORDERED: amLODIPine BESYLATE 5 MG TABLET PO ONE (12:45)
--- NOTE | 2020-01-16 13:13 | NUR ---
SS following for discharge planning. SS reviewed pt chart and discussed with pt RN. Pt is from home with family and is currently on room air. Pt having increased blood pressure and having medications adjusted per pt's RN. SS will continue to follow for discharge planning.
--- NOTE | 2020-01-16 13:28 | PDOC ---
[employer] PROGRESS NOTE Chief Complaint Chief Complaint Malignant hypertension Probable noncompliance Asthma Slightly elevated troponin secondary to demand ischemia History of Present Illness History of Present Illness 01/16/2020 Patient seen and examined Discussed with RN Her blood pressure continues to run in the 190s systolic Vitals/I&O Vitals/I&O: Vital Signs Date Time Temp Pulse Resp B/P (MAP) Pulse Ox O2 Delivery O2 Flow Rate FiO2 01/16/20 13:16 96 196/110 01/16/20 11:00 98.3 22 95 Room Air 98.3 I & O 01/15/20 01/15/20 01/16/20 15:00 23:00 07:00 Intake Total 550 ml 400 ml 200 ml Output Total 800 ml Balance -250 ml 400 ml 200 ml Physical Exam General: No acute distress Heart: Regular rate Abdomen: Normal bowel sounds Labs Labs: Laboratory Tests Test 01/16/20 03:20 White Blood Count 5.4 x10^3/uL (4.0-11.0) Red Blood Count 4.09 x10^6/uL (3.50-5.40) Hemoglobin 11.5 g/dL (12.0-15.5) Hematocrit 35.0 % (36.0-47.0) Mean Corpuscular Volume 86 fL (79-100) Mean Corpuscular Hemoglobin 28 pg (25-35) Mean Corpuscular Hemoglobin Concent 33 g/dL (31-37) Red Cell Distribution Width 16.5 % (11.5-14.5) Platelet Count 308 x10^3/uL (140-400) Neutrophils (%) (Auto) 50 % (31-73) Lymphocytes (%) (Auto) 32 % (24-48) Monocytes (%) (Auto) 13 % (0-9) Eosinophils (%) (Auto) 4 % (0-3) Basophils (%) (Auto) 1 % (0-3) Neutrophils # (Auto) 2.7 x10^3/uL (1.8-7.7) Lymphocytes # (Auto) 1.7 x10^3/uL (1.0-4.8) Monocytes # (Auto) 0.7 x10^3/uL (0.0-1.1) Eosinophils # (Auto) 0.2 x10^3/uL (0.0-0.7) Basophils # (Auto) 0.1 x10^3/uL (0.0-0.2) Sodium Level 138 mmol/L (136-145) Potassium Level 3.4 mmol/L (3.5-5.1) Chloride Level 101 mmol/L (98-107) Carbon Dioxide Level 30 mmol/L (21-32) Anion Gap 7 (6-14) Blood Urea Nitrogen 12 mg/dL (7-20) Creatinine 1.0 mg/dL (0.6-1.0) Estimated GFR (Cockcroft-Gault) 72.2 BUN/Creatinine Ratio 12 (6-20) Glucose Level 102 mg/dL (70-99) Calcium Level 8.9 mg/dL (8.5-10.1) Magnesium Level 1.8 mg/dL (1.8-2.4) Total Bilirubin 0.4 mg/dL (0.2-1.0) Aspartate Amino Transf (AST/SGOT) 17 U/L (15-37) Alanine Aminotransferase (ALT/SGPT) 14 U/L (14-59) Alkaline Phosphatase 77 U/L (46-116) Total Protein 7.2 g/dL (6.4-8.2) Albumin 3.2 g/dL (3.4-5.0) Albumin/Globulin Ratio 0.8 (1.0-1.7) Assessment and Plan Assessmemt and Plan Problems Medical Problems: (1) Malignant essential hypertension Status: Acute Malignant hypertension Probable noncompliance Asthma Slightly elevated troponin secondary to demand ischemia Plan Cardiac monitoring Increase Norvasc to 10 daily I left prescriptions for blood pressure meds in case she is able to leave later today Appreciate subspecialist input Comment Review of Relevant I have reviewed the following items kylie (where applicable) has been applied. Medications: Current Medications Medications (Trade) Dose Ordered Sig/Jey Route PRN Reason Start Time Stop Time Status Last Admin Dose Admin Montelukast Sodium (Singulair) 10 mg QHS PO 01/15/20 21:00 01/15/20 21:00 Amlodipine Besylate (Norvasc) 5 mg 1X ONCE PO 01/16/20 12:45 01/16/20 12:46 DC 01/16/20 13:16 CASTLENIAL K III DO January 16, 2020 13:28
[2020-01-16] MEDS: MONTELUKAST SODIUM 10 MG TABLET. PO SCH (20:44)
[2020-01-16] MEDS ORDERED: CARVEDILOL 6.25 MG TABLET. PO ONE (22:30)
[2020-01-16] MEDS: ACETAMINOPHEN 325 MG TABLET. PO PRN (22:52)
[2020-01-17 03:12] VITALS: BP 152/83
[2020-01-17 07:00] VITALS: BP 174/103
[2020-01-17] MEDS ORDERED: POTASSIUM CHLORIDE 20 MEQ TABLET.ER. PO ONE (08:00)
[2020-01-17] MEDS ORDERED: CARVEDILOL 6.25 MG TABLET. PO SCH ×2 (08:00→17:00)
[2020-01-17] MEDS: LOSARTAN POTASSIUM 50 MG TABLET. PO SCH (08:14)
[2020-01-17] MEDS: hydroCHLOROthiazide 25 MG TABLET PO SCH (08:15)
[2020-01-17] MEDS: CETIRIZINE HCL 10 MG TABLET. PO SCH (08:15)
--- NOTE | 2020-01-17 08:32 | PDOC ---
PROGRESS NOTES Chief Complaint Chief Complaint IMPRESSION Malignant hypertension Probable noncompliance Asthma Slightly elevated troponin secondary to demand ischemia bp slow to improve 01/16 add clonidine 0.1mg po bid History of Present Illness History of Present Illness 01/16/2020 Patient seen and examined Discussed with RN Her blood pressure continues to run in the 190s systolic Vitals Vitals Vital Signs Date Time Temp Pulse Resp B/P (MAP) Pulse Ox O2 Delivery O2 Flow Rate FiO2 01/17/20 08:15 77 174/103 01/17/20 07:00 97.7 20 95 Room Air 97.7 Physical Exam General: Alert, Oriented X3, Cooperative, No acute distress Heart: Regular rate, Normal S1 Lungs: Clear Abdomen: Normal bowel sounds, No tenderness Extremities: No cyanosis, No edema Labs LABS Renal Artery Doppler Right Renal Artery Left Renal Artery Proximal 43.0/7.0 cm/sec Proximal 94.0/29.0 cm/sec Mid 75.0/25.0 cm/sec Mid 57.0/17.0 cm/sec Distal 61.0/20.0 cm/sec Distal 62.0/25.0 cm/sec Renal/Aorta Ratio 0.58 Renal/Aorta Ratio 0.73 Prox. Resistive Index 0.83 Prox. Resistive Index 0.69 Mid Resistive Index 0.66 Mid Resistive Index 0.70 Distal Resistive Index 0.67 Distal Resistive Index 0.60 Rt. Segmental A. 21.0/7.0 cm/sec Lt. Segmental A. 39.0/12.0 cm/sec Renal Measurements Right Left Kidney Length 11.4 cm cm Kidney Length 11.3 cm cm Right Additional Findings Left Additional Findings Aortic Doppler Velocity Waveform Proximal Aorta 128.0 cm/sec Findings Grayscale images of the bilateral kidneys and aorta are grossly unremarkable. The images are slightly suboptimal. The aorta appears to be mildly calcified without any focal obstructive plaque. Spectral waveforms of the aorta are within normal limits. Spectral waveforms are limited of the bilateral renal arteries but grossly no obvious renal artery stenosis is identified. Critical Notification Critical Value: No <Conclusion> 1. No significant renal artery stenosis bilaterally. Signed by : Tammy Vera, Electronically Approved : 01/16/2020 09:21:38 DICTATED and SIGNED BY: TAMMY VERA MD Assessment and Plan Assessmemt and Plan Problems Medical Problems: (1) Malignant essential hypertension Status: Acute Comment Review of Relevant I have reviewed the following items kylie (where applicable) has been applied. Labs Laboratory Tests Test 01/16/20 03:20 White Blood Count 5.4 x10^3/uL (4.0-11.0) Red Blood Count 4.09 x10^6/uL (3.50-5.40) Hemoglobin 11.5 g/dL (12.0-15.5) Hematocrit 35.0 % (36.0-47.0) Mean Corpuscular Volume 86 fL (79-100) Mean Corpuscular Hemoglobin 28 pg (25-35) Mean Corpuscular Hemoglobin Concent 33 g/dL (31-37) Red Cell Distribution Width 16.5 % (11.5-14.5) Platelet Count 308 x10^3/uL (140-400) Neutrophils (%) (Auto) 50 % (31-73) Lymphocytes (%) (Auto) 32 % (24-48) Monocytes (%) (Auto) 13 % (0-9) Eosinophils (%) (Auto) 4 % (0-3) Basophils (%) (Auto) 1 % (0-3) Neutrophils # (Auto) 2.7 x10^3/uL (1.8-7.7) Lymphocytes # (Auto) 1.7 x10^3/uL (1.0-4.8) Monocytes # (Auto) 0.7 x10^3/uL (0.0-1.1) Eosinophils # (Auto) 0.2 x10^3/uL (0.0-0.7) Basophils # (Auto) 0.1 x10^3/uL (0.0-0.2) Sodium Level 138 mmol/L (136-145) Potassium Level 3.4 mmol/L (3.5-5.1) Chloride Level 101 mmol/L (98-107) Carbon Dioxide Level 30 mmol/L (21-32) Anion Gap 7 (6-14) Blood Urea Nitrogen 12 mg/dL (7-20) Creatinine 1.0 mg/dL (0.6-1.0) Estimated GFR (Cockcroft-Gault) 72.2 BUN/Creatinine Ratio 12 (6-20) Glucose Level 102 mg/dL (70-99) Calcium Level 8.9 mg/dL (8.5-10.1) Magnesium Level 1.8 mg/dL (1.8-2.4) Total Bilirubin 0.4 mg/dL (0.2-1.0) Aspartate Amino Transf (AST/SGOT) 17 U/L (15-37) Alanine Aminotransferase (ALT/SGPT) 14 U/L (14-59) Alkaline Phosphatase 77 U/L (46-116) Total Protein 7.2 g/dL (6.4-8.2) Albumin 3.2 g/dL (3.4-5.0) Albumin/Globulin Ratio 0.8 (1.0-1.7) Medications Current Medications Labetalol HCl (Normodyne Iv Push) 20 mg 1X ONCE IVP Last administered on 01/14/20at 23:28; Start 01/14/20 at 23:00; Stop 01/14/20 at 23:01; Status DC Labetalol HCl (Normodyne Iv Push) 10 mg 1X ONCE IVP Last administered on 01/15/20at 01:04; Start 01/15/20 at 00:45; Stop 01/15/20 at 00:46; Status DC Ondansetron HCl (Zofran) 4 mg PRN Q8HRS PRN IV NAUSEA/VOMITING; Start 01/15/20 at 01:00; Stop 01/16/20 at 00:59; Status DC Morphine Sulfate (Morphine Sulfate) 2 mg PRN Q2HR PRN IV PAIN; Start 01/15/20 at 01:00; Stop 01/16/20 at 00:59; Status DC Labetalol HCl (Normodyne Iv Push) 10 mg PRN Q4HRS PRN IVP SBP > 190 Last administered on 01/16/20at 20:44; Start 01/15/20 at 01:15 Nicardipine HCl 50 mg/Sodium Chloride 250 ml @ 25 mls/hr CONT PRN IV SEE I/O RECORD Last administered on 01/15/20at 06:23; Start 01/15/20 at 06:00; Stop 01/15/20 at 11:37; Status DC Furosemide (Lasix) 40 mg 1X ONCE IVP Last administered on 01/15/20at 06:13; Start 01/15/20 at 06:00; Stop 01/15/20 at 06:03; Status DC Hydrochlorothiazide (Hydrodiuril) 25 mg DAILY PO Last administered on 01/17/20 08:15; Start 01/15/20 at 12:00 Cetirizine HCl (ZyrTEC) 10 mg DAILY PO Last administered on 01/17/20 08:15; Start 01/15/20 at 12:00 Losartan Potassium (Cozaar) 100 mg DAILY PO Last administered on 01/17/20 08:14; Start 01/15/20 at 12:00 Acetaminophen (Tylenol) 650 mg PRN Q6HRS PRN PO PAIN Last administered on 01/16/20 22:52; Start 01/15/20 at 12:00 Amlodipine Besylate (Norvasc) 5 mg DAILY PO Last administered on 01/16/20 08:24; Start 01/15/20 at 12:00; Stop 01/16/20 at 12:36; Status DC Montelukast Sodium (Singulair) 10 mg QHS PO Last administered on 01/16/20 20:44; Start 01/15/20 at 21:00 Fluticasone Propionate (Flonase) 2 spray DAILY NS Last administered on 01/16/20 08:26; Start 01/15/20 at 12:00 Trazodone HCl (Desyrel) 50 mg PRN QHS PRN PO INSOMNIA; Start 01/15/20 at 13:00 Amlodipine Besylate (Norvasc) 10 mg DAILY PO Last administered on 01/17/20 08:15; Start 01/17/20 at 09:00 Amlodipine Besylate (Norvasc) 5 mg 1X ONCE PO Last administered on 01/16/20 13:16; Start 01/16/20 at 12:45; Stop 01/16/20 at 12:46; Status DC Carvedilol (Coreg) 6.25 mg BIDWMEALS PO Last administered on 01/17/20 08:15; Start 01/17/20 at 08:00 Carvedilol (Coreg) 6.25 mg 1X ONCE PO Last administered on 01/16/20 22:47; Start 01/16/20 at 22:30; Stop 01/16/20 at 22:31; Status DC Potassium Chloride (Klor-Con) 40 meq 1X ONCE PO Last administered on 01/17/20 08:13; Start 01/17/20 at 08:00; Stop 01/17/20 at 08:01; Status DC Active Scripts Active Reported Claritin (Loratadine) 10 Mg Capsule 1 Cap PO DAILY 30 Days Diovan (Valsartan) 320 Mg Tablet 320 Mg PO DAILY Hydrochlorothiazide 25 Mg Tablet 25 Mg PO DAILY Vitals/I & O Vital Sign - Last 24 Hours 01/16/20 01/16/20 01/16/20 01/16/20 11:00 13:16 14:21 15:00 Temp 98.3 98.0 98.3 98.0 Pulse 83 96 85 Resp 22 22 B/P (MAP) 181/103 (129) 196/110 180/109 (132) 161/93 (115) Pulse Ox 95 96 O2 Delivery Room Air Room Air 01/16/20 01/16/20 01/16/20 01/16/20 16:52 17:27 19:28 19:50 Temp 98.0 98.0 Pulse 85 87 Resp 20 B/P (MAP) 181/135 (150) 187/116 171/93 (119) 187/116 (139) Pulse Ox 97 O2 Delivery Room Air Room Air 01/16/20 01/16/20 01/16/20 01/17/20 20:44 22:47 23:05 03:12 Temp 97.7 97.6 97.7 97.6 Pulse 87 87 95 79 Resp 20 20 B/P (MAP) 171/93 171/93 154/78 (103) 152/83 (106) Pulse Ox 97 95 O2 Delivery Room Air Room Air 01/17/20 01/17/20 01/17/20 01/17/20 07:00 08:14 08:15 08:15 Temp 97.7 97.7 Pulse 77 77 77 77 Resp 20 B/P (MAP) 174/103 (126) 174/103 174/103 174/103 Pulse Ox 95 O2 Delivery Room Air Intake and Output 01/16/20 01/16/20 01/17/20 15:00 23:00 07:00 Intake Total 0 ml 400 ml Balance 0 ml 400 ml RICHMOND VAZQUEZ MD January 17, 2020 08:32
[2020-01-17] MEDS ORDERED: hydrALAZINE 20 MG/ML VIAL. IVP PRN (08:45)
[2020-01-17] MEDS ORDERED: amLODIPine BESYLATE 5 MG TABLET PO SCH (09:00)
[2020-01-17] MEDS ORDERED: cloNIDine HCL 0.1 MG TABLET PO SCH (10:15)
--- NOTE | 2020-01-17 10:30 | PDOC ---
MARILU ATKINSON ABATEMENT WORKER 01/17/20 1030: CARDIO Progress Notes Date and Time Date of Service 01/17/2020 Time of Evaluation 1010 Subjective Subjective: No Chest Pain, No shortness of breath, No Palpitations Vitals Vitals Vital Signs Date Time Temp Pulse Resp B/P (MAP) Pulse Ox O2 Delivery O2 Flow Rate FiO2 01/17/20 08:15 77 174/103 01/17/20 07:00 97.7 20 95 Room Air 97.7 Weight Weight [ ] Input and Output Intake and Output Intake and Output 01/17/20 07:00 Intake Total 400 ml Balance 400 ml Intake Oral 400 ml Physical Exam HEENT: Neck Supple W Full Motion Chest: Symmetric LUNGS: Clear to Auscultation Heart: S1S2, RRR (SR) Abdomen: Soft N/T Extremities: No Edema, No Calf Tenderness Neurology: alert, oriented, follow commands Assessment Assessment 1. HTN urgency: Hypertensive heart disease. BP remains labile. Negative for LEÓN 2. Morbid obesity 3. HLP: LDL 207 Recommendations 1. Dietitian consult eat salty foods canned goods 2. Coreg 12.5 norvasc Continue home HCTZ and diovan 3. Start on lipitor 4. HBPM bid and f/u with PCP in 1-2 weeks 4. Discussed exercise and wt loss. ADELSO ALVARADO MD 01/17/20 1441: CARDIO Progress Notes Assessment Assessment Patient seen and examined. Agree with SOURCING MANAGER's assessment and plan. Blood pressure better controlled but still elevated. Renal arterial duplex scan did not show any significant stenosis. Agree with adding Coreg Start Lipitor for significantly elevated LDL MARILU ATKINSON APRN January 17, 2020 10:30 ADELSO ALVARADO MD January 17, 2020 14:41
[2020-01-17 10:50] LABS: CHOLESTEROL/HDL RATIO 5.3
[2020-01-17 11:00] VITALS: BP 156/103
--- NOTE | 2020-01-17 12:10 | PDOC3 ---
Discharge Summary Date of Admission: January 15, 2020 Date of Discharge: January 17, 2020 Follow-Up: 3-5 days Admitting Diagnosis comment: discharge dx Malignant hypertension Probable noncompliance Asthma Slightly elevated troponin secondary to demand ischemia bp slow to improve 01/16 add clonidine 0.1mg po bid d/c planning 24 min History of Present Illness History of Present Illness 01/17/2020 Patient seen and examined Discussed with RN Her blood pressure continues to run in the 190s systolic now better Vitals Vitals Vital Signs Date Time Temp Pulse Resp B/P (MAP) Pulse Ox O2 Delivery O2 Flow Rate FiO2 01/17/20 08:15 77 174/103 01/17/20 07:00 97.7 20 95 Room Air 97.7 Physical Exam General: Alert, Oriented X3, Cooperative, No acute distress Heart: Regular rate, Normal S1 Lungs: Clear Abdomen: Normal bowel sounds, No tenderness Extremities: No cyanosis, No edema Labs LABS Renal Artery Doppler Right Renal Artery Left Renal Artery Proximal 43.0/7.0 cm/sec Proximal 94.0/29.0 cm/sec Mid 75.0/25.0 cm/sec Mid 57.0/17.0 cm/sec Distal 61.0/20.0 cm/sec Distal 62.0/25.0 cm/sec Renal/Aorta Ratio 0.58 Renal/Aorta Ratio 0.73 Prox. Resistive Index 0.83 Prox. Resistive Index 0.69 Mid Resistive Index 0.66 Mid Resistive Index 0.70 Distal Resistive Index 0.67 Distal Resistive Index 0.60 Rt. Segmental A. 21.0/7.0 cm/sec Lt. Segmental A. 39.0/12.0 cm/sec Renal Measurements Right Left Kidney Length 11.4 cm cm Kidney Length 11.3 cm cm Right Additional Findings Left Additional Findings Aortic Doppler Velocity Waveform Proximal Aorta 128.0 cm/sec Findings Grayscale images of the bilateral kidneys and aorta are grossly unremarkable. The images are slightly suboptimal. The aorta appears to be mildly calcified without any focal obstructive plaque. Spectral waveforms of the aorta are within normal limits. Spectral waveforms are limited of the bilateral renal arteries but grossly no obvious renal artery stenosis is identified. Critical Notification Critical Value: No <Conclusion> 1. No significant renal artery stenosis bilaterally. Signed by : Tammy Vera, Electronically Approved : 01/16/2020 09:21:38 DICTATED and SIGNED BY: TAMMY VERA MD Assessment and Plan Assessmemt and Plan Problems Medical Problems: (1) Malignant essential hypertension FINAL DIAGNOSIS Problems Medical Problems: (1) Malignant essential hypertension Status: Acute Brief Hospital Course Ms. العلي is a 44 old [sex] who presented with [hypertension, malignant ] CONDITION AT DISCHARGE: Improved Discharge Medications Current Medications Labetalol HCl (Normodyne Iv Push) 20 mg 1X ONCE IVP Last administered on 01/14/20at 23:28; Start 01/14/20 at 23:00; Stop 01/14/20 at 23:01; Status DC Labetalol HCl (Normodyne Iv Push) 10 mg 1X ONCE IVP Last administered on 01/15/20at 01:04; Start 01/15/20 at 00:45; Stop 01/15/20 at 00:46; Status DC Ondansetron HCl (Zofran) 4 mg PRN Q8HRS PRN IV NAUSEA/VOMITING; Start 01/15/20 at 01:00; Stop 01/16/20 at 00:59; Status DC Morphine Sulfate (Morphine Sulfate) 2 mg PRN Q2HR PRN IV PAIN; Start 01/15/20 at 01:00; Stop 01/16/20 at 00:59; Status DC Labetalol HCl (Normodyne Iv Push) 10 mg PRN Q4HRS PRN IVP SBP > 190 Last administered on 01/16/20at 20:44; Start 01/15/20 at 01:15 Nicardipine HCl 50 mg/Sodium Chloride 250 ml @ 25 mls/hr CONT PRN IV SEE I/O RECORD Last administered on 01/15/20at 06:23; Start 01/15/20 at 06:00; Stop 01/15/20 at 11:37; Status DC Furosemide (Lasix) 40 mg 1X ONCE IVP Last administered on 01/15/20at 06:13; Start 01/15/20 at 06:00; Stop 01/15/20 at 06:03; Status DC Hydrochlorothiazide (Hydrodiuril) 25 mg DAILY PO Last administered on 01/17/20at 08:15; Start 01/15/20 at 12:00 Cetirizine HCl (ZyrTEC) 10 mg DAILY PO Last administered on 01/17/20 08:15; Start 01/15/20 at 12:00 Losartan Potassium (Cozaar) 100 mg DAILY PO Last administered on 01/17/20 08:14; Start 01/15/20 at 12:00 Acetaminophen (Tylenol) 650 mg PRN Q6HRS PRN PO PAIN Last administered on 01/16/20 22:52; Start 01/15/20 at 12:00 Amlodipine Besylate (Norvasc) 5 mg DAILY PO Last administered on 01/16/20 08:24; Start 01/15/20 at 12:00; Stop 01/16/20 at 12:36; Status DC Montelukast Sodium (Singulair) 10 mg QHS PO Last administered on 01/16/20 20:44; Start 01/15/20 at 21:00 Fluticasone Propionate (Flonase) 2 spray DAILY NS Last administered on 01/16/20 08:26; Start 01/15/20 at 12:00 Trazodone HCl (Desyrel) 50 mg PRN QHS PRN PO INSOMNIA; Start 01/15/20 at 13:00 Amlodipine Besylate (Norvasc) 10 mg DAILY PO Last administered on 01/17/20 08:15; Start 01/17/20 at 09:00 Amlodipine Besylate (Norvasc) 5 mg 1X ONCE PO Last administered on 01/16/20 13:16; Start 01/16/20 at 12:45; Stop 01/16/20 at 12:46; Status DC Carvedilol (Coreg) 6.25 mg BIDWMEALS PO Last administered on 01/17/20 08:15; Start 01/17/20 at 08:00; Stop 01/17/20 at 10:28; Status DC Carvedilol (Coreg) 6.25 mg 1X ONCE PO Last administered on 01/16/20 22:47; Start 01/16/20 at 22:30; Stop 01/16/20 at 22:31; Status DC Potassium Chloride (Klor-Con) 40 meq 1X ONCE PO Last administered on 01/17/20 08:13; Start 01/17/20 at 08:00; Stop 01/17/20 at 08:01; Status DC Hydralazine HCl (Apresoline Inj) 10 mg PRN Q4HRS PRN IVP ELEVATED BP, SEE COMMENTS; Start 01/17/20 at 08:45 Clonidine HCl (Catapres) 0.1 mg BID PO ; Start 01/17/20 at 10:15; Stop 01/17/20 at 10:28; Status DC Carvedilol (Coreg) 12.5 mg BIDWMEALS PO ; Start 01/17/20 at 17:00 Active Scripts Active Reported Claritin (Loratadine) 10 Mg Capsule 1 Cap PO DAILY 30 Days Diovan (Valsartan) 320 Mg Tablet 320 Mg PO DAILY Hydrochlorothiazide 25 Mg Tablet 25 Mg PO DAILY Vital Signs Vital Signs Date Time Temp Pulse Resp B/P (MAP) Pulse Ox O2 Delivery O2 Flow Rate FiO2 01/17/20 11:00 98.1 90 20 156/103 (120) 96 Room Air 98.1 Labs Laboratory Tests Test 01/16/20 03:20 White Blood Count 5.4 x10^3/uL (4.0-11.0) Red Blood Count 4.09 x10^6/uL (3.50-5.40) Hemoglobin 11.5 g/dL (12.0-15.5) Hematocrit 35.0 % (36.0-47.0) Mean Corpuscular Volume 86 fL (79-100) Mean Corpuscular Hemoglobin 28 pg (25-35) Mean Corpuscular Hemoglobin Concent 33 g/dL (31-37) Red Cell Distribution Width 16.5 % (11.5-14.5) Platelet Count 308 x10^3/uL (140-400) Neutrophils (%) (Auto) 50 % (31-73) Lymphocytes (%) (Auto) 32 % (24-48) Monocytes (%) (Auto) 13 % (0-9) Eosinophils (%) (Auto) 4 % (0-3) Basophils (%) (Auto) 1 % (0-3) Neutrophils # (Auto) 2.7 x10^3/uL (1.8-7.7) Lymphocytes # (Auto) 1.7 x10^3/uL (1.0-4.8) Monocytes # (Auto) 0.7 x10^3/uL (0.0-1.1) Eosinophils # (Auto) 0.2 x10^3/uL (0.0-0.7) Basophils # (Auto) 0.1 x10^3/uL (0.0-0.2) Sodium Level 138 mmol/L (136-145) Potassium Level 3.4 mmol/L (3.5-5.1) Chloride Level 101 mmol/L (98-107) Carbon Dioxide Level 30 mmol/L (21-32) Anion Gap 7 (6-14) Blood Urea Nitrogen 12 mg/dL (7-20) Creatinine 1.0 mg/dL (0.6-1.0) Estimated GFR (Cockcroft-Gault) 72.2 BUN/Creatinine Ratio 12 (6-20) Glucose Level 102 mg/dL (70-99) Calcium Level 8.9 mg/dL (8.5-10.1) Magnesium Level 1.8 mg/dL (1.8-2.4) Total Bilirubin 0.4 mg/dL (0.2-1.0) Aspartate Amino Transf (AST/SGOT) 17 U/L (15-37) Alanine Aminotransferase (ALT/SGPT) 14 U/L (14-59) Alkaline Phosphatase 77 U/L (46-116) Total Protein 7.2 g/dL (6.4-8.2) Albumin 3.2 g/dL (3.4-5.0) Albumin/Globulin Ratio 0.8 (1.0-1.7) Triglycerides Level 94 mg/dL (0-150) Cholesterol Level 278 mg/dL (0-200) LDL Cholesterol, Calculated 207 mg/dL (0-100) VLDL Cholesterol, Calculated 19 mg/dL (0-40) Non-HDL Cholesterol Calculated 226 mg/dL (0-129) HDL Cholesterol 52 mg/dL (40-60) Cholesterol/HDL Ratio 5.3 Allergies Allergies Coded Allergies Type Severity Reaction Last Updated Verified Penicillins Allergy Intermediate 12/01/14 No levofloxacin Allergy Intermediate 12/18/14 No Disposition/Orders: D/C to Home RICHMOND VAZQUEZ MD January 17, 2020 12:10
[2020-01-17] MEDS ORDERED: ATOR40TA59 PO ×2 (12:12→12:25)
[2020-01-17] MEDS ORDERED: AMLO5TAB10 PO (12:12)
[2020-01-17] MEDS ORDERED: MONT10TA49 PO (12:12)
[2020-01-17] MEDS ORDERED: FLUT16SP NS (12:12)
[2020-01-17] MEDS ORDERED: CARV6.2511 PO (12:12)
--- NOTE | 2020-01-17 12:13 | DISCH ---
DISCHARGE INSTRUCTIONS Condition on Discharge Condition on Discharge: Stable Activity After Discharge Activity Instructions for Disc: Resume previous activity, Activity as tolerated Exercise Instruction after Dis: Progress as tolerated Driving Instructions after Dis: Do not drive today Weight Bearing Status after Di: No restrictions Diet after Discharge Diet after Discharge: Cardiac Diet Texture: Regular Liquid Texture: Thin Liquid Swallowing Supervision: None needed Checks after Discharge Checks after discharge: Check blood press - daily Contacting the DR. after DC Call your doctor for: If your condition worsens RICHMOND VAZQUEZ MD January 17, 2020 12:13
--- NOTE | 2020-01-17 13:45 | NUR ---
Patient discharged to home. Instructions given and verbalized understanding. PIV and heart monitor removed. Escorted patient off unit per wheelchair int a private vehicle.
[2020-01-17] MEDS ORDERED: ATORVASTATIN CALCIUM 40 MG TABLET. PO SCH (21:00)
== END 2020-01-17 13:30 | disposition home or self-care (01) | DRG 305 ==
LOC: ER 22:08 → 2 NORTH 01-15 01:28
PROVIDERS: ADMIT Internal Medicine; ATTEND Internal Medicine
DX: I16.0 Hypertensive urgency (principal); I24.8 Other forms of acute ischemic heart disease; I42.9 Cardiomyopathy, unspecified; Z68.42 Body mass index [BMI] 45.0-49.9, adult; E66.01 Morbid (severe) obesity due to excess calories; E78.5 Hyperlipidemia, unspecified; F41.1 Generalized anxiety disorder; I11.9 Hypertensive heart disease without heart failure; J45.909 Unspecified asthma, uncomplicated; Z79.899 Other long term (current) drug therapy; Z82.49 Family history of ischemic heart disease and other diseases of the circulatory system; Z88.1 Allergy status to other antibiotic agents; Z88.0 Allergy status to penicillin
CPT/HCPCS: 36415; 71045; 80053; 80061; 83735; 84443; 84484; 85025; 93005; 93306; 93975; 96374; 96376; 99285; J1940; J3490; J7050; G0378; J7030

== ENCOUNTER 2021-04-23 00:16 | Emergency (ER) | payer BC ==
[~2021-04-23] VITALS: Ht 170.2 cm; Wt 129.5 kg
[~2021-04-23 00:16] MED LIST changes: +AMLO-186 PO; -ASPI-612 PO; +ASPI-886 PO; +ATOR40TA59 PO; +CARV6.2511 PO; -DOXY100C2 PO; +DOXY100C3 PO; +FLUT16SP NS; +HYDR25TA10 PO; +LORA10CA PO; +MONT10TA49 PO; +VALS320T2 PO
[2021-04-23] MEDS ORDERED: NITR100C62 PO (01:59)
[2021-04-23] MEDS ORDERED: PRED50TA PO (01:59)
[2021-04-23] MEDS ORDERED: DIPH25TA24 PO (01:59)
--- NOTE | 2021-04-23 01:59 | PHYS DOC ---
Past Medical History Past Medical History: Anxiety, Hypertension Additional Past Medical Histor: miscarriage, cardiomyopathy Past Surgical History: No Surgical History Smoking Status: Never Smoker Alcohol Use: None Drug Use: None General Adult EDM: Chief Complaint: ALLERGIC REACTION Problems: (1) Throat dryness HPI: HPI: 46-year-old female patient presents to the emergency department complaining of dry throat, throat swelling for the past 3 days. She reports that she was taking a prescription for UTI (Bactrim) and has 3 days left of this medication and she is concerned that she may be having allergic reaction to the Bactrim. She denies any further symptoms such as abdominal pain, chest pain, shortness of breath, rash, GI upset Review of Systems: Review of Systems: Constitutional: Denies fever or chills. Eyes: Denies change in visual acuity. HENT: Denies nasal congestion Respiratory: Denies cough or shortness of breath. Cardiovascular: Denies chest pain or edema. GI: Denies abdominal pain, nausea, vomiting, bloody stools or diarrhea. : Denies dysuria. Musculoskeletal: Denies back pain or joint pain. Integument: Denies rash. Neurologic: Denies headache, focal weakness or sensory changes. Endocrine: Denies polyuria or polydipsia. Lymphatic: Denies swollen glands. Psychiatric: Denies depression or anxiety. Heart Score: C/O Chest Pain: No Current Medications: My Orders - EMILI URRUTIA DO Procedure Category Date Status Time Prednisone PHA 04/23/21 In Process (Prednisone) 02:00 Allergies: Allergies: Allergies Coded Allergies Type Severity Reaction Last Updated Verified Penicillins Allergy Intermediate 12/01/14 No levofloxacin Allergy Intermediate 12/18/14 No Physical Exam: PE: Constitutional: No acute distress, non-toxic appearance. HENT: Atraumatic, bilateral external ears normal, nose normal. Oropharynx normal, floor the mouth soft, airway intact. Eyes: PERRLA, EOMI, conjunctiva normal, no discharge. Neck: Normal range of motion, supple, no stridor. Cardiovascular: Heart rate regular rhythm. 2+ radial pulses Lungs & Thorax: No respiratory distress, symmetrical expansion. Bilateral breath sounds clear to auscultation Abdomen: Soft, no tenderness Skin: Warm, dry. No rash Extremities: No tenderness, no cyanosis, ROM intact, no edema. Neurologic: Alert and oriented X 3, normal motor function, normal sensory function, no focal deficits noted. Non ataxic gait. GCS 15. Psychologic: Affect normal, judgment normal, mood normal. Current Patient Data: Vital Signs: Vital Signs Date Time Temp Pulse Resp B/P (MAP) Pulse Ox O2 Delivery O2 Flow Rate FiO2 04/23/21 02:42 101 18 225/102 (143) 100 Room Air 04/23/21 02:15 101 18 250/133 (172) 100 04/23/21 02:05 98.0 99 18 156/103 (120) 100 Room Air 98.0 Course & Med Decision Making: Course & Med Decision Making There is no signs or symptoms of anaphylaxis today, patient likely having a simple allergic reaction versus undefined dryness of the throat. Her airway is intact, there is no indication for epinephrine at this time. We will start the patient on a steroid burst, Benadryl as needed, switching antibiotics to Macrobid Patient was counseled on her blood pressure today which is as above, she states that she did not take her medicines today and will take it at home. She would prefer not to stay for further work-up. She has a doctor she can follow-up with. There is no complaints that are suggestive of endorgan damage today Departure Departure Impression: Primary Impression: Allergic reaction Disposition: HOME / SELF CARE / HOMELESS Condition: STABLE Referrals: CHIP BARBOUR (PCP) Patient Instructions: Anaphylactic Reaction, [id number] Additional Instructions: You were seen for a possible allergic reaction. You should take the entire course of steroids as prescribed. You need to follow up in the allergy or medicine clinic for further evaluation. It is unclear what caused your reaction. If you start to have shortness of breath, facial swelling, tongue swelling, difficulty swallowing, or any other concerning symptoms you should take your epipen and call 911 to return to the ED. Scripts Prednisone (PREDNISONE) 50 Mg Tablet 1 TAB PO DAILY for 4 Days, #4 TAB Prov: EMILI URRUTIA DO 04/23/21 Diphenhydramine Hcl (DIPHENHYDRAMINE HCL) 25 Mg Tablet 1 TAB PO QHS for allergy symptoms for 30 Days, #30 TAB 0 Refills Prov: EMILI URRUTIA DO 04/23/21 Nitrofurantoin Monohyd/M-Cryst (MACROBID 100 MG CAPSULE) 100 Mg Capsule 1 CAP PO BID for 5 Days, #10 CAP 0 Refills Prov: EMILI URRUTIA DO 04/23/21 EMILI URRUTIA DO Apr 23, 2021 01:59
[2021-04-23] MEDS ORDERED: predniSONE 10 MG TABLET PO ONE (02:00)
[2021-04-23 02:42] VITALS: BP 225/102
== END 2021-04-23 03:17 | disposition home or self-care (01) ==
LOC: ER 00:16
DX: T78.40XA Allergy, unspecified, initial encounter (principal); I10 Essential (primary) hypertension; Z88.0 Allergy status to penicillin; Z88.1 Allergy status to other antibiotic agents
CPT/HCPCS: 99283; J7512

== ENCOUNTER 2021-06-24 15:16 | Emergency (ER) | payer BC ==
[~2021-06-24] VITALS: Ht 167.6 cm; Wt 127.3 kg
[~2021-06-24 15:16] MED LIST changes: +DIPH25TA24 PO; +NITR100C62 PO; +PRED50TA PO
[2021-06-24] MEDS ORDERED: cloNIDine HCL 0.1 MG TABLET PO ONE (15:45)
--- NOTE | 2021-06-24 15:53 | PHYS DOC ---
Past Medical History Past Medical History: Anxiety, Hypertension Additional Past Medical Histor: miscarriage, cardiomyopathy (FERNANDA SAINI PRESIDENT AND CEO) Past Surgical History: No Surgical History (FERNANDA SAINI PRESIDENT AND CEO) Smoking Status: Never Smoker Alcohol Use: None Drug Use: None (FERNANDA SAINI APRN) General Adult EDM: Chief Complaint: ALLERGIC REACTION HPI: HPI: Patient is a 46 year old female with history of anxiety, hypertension, who presents to the ED today stating she was driving from [place] with the daughter and she started feeling her throat is swelling, throat was dry and she could not breathe. She requested to be brought to the ED. Patient states she had same symptoms in April when she was put on Bactrim and was seen in the ED. Patient denies any chest pain. Denies any fever. (FERNANDA SAINI PRESIDENT AND CEO) Review of Systems: Review of Systems: Constitutional: Denies fever or chills. [] Eyes: Denies change in visual acuity. [] HENT: Reports throat swelling, denies nasal congestion or sore throat. [] Respiratory: Reports shortness of breath, denies coughing Cardiovascular: Denies chest pain or edema. [] GI: Denies abdominal pain, nausea, vomiting, bloody stools or diarrhea. [] : Denies dysuria. [] Musculoskeletal: Denies back pain or joint pain. [] Integument: Denies rash. [] Neurologic: Denies headache, focal weakness or sensory changes. [] Psychiatric: Denies depression or anxiety. [] (FERNANDA SAINI PRESIDENT AND CEO) Heart Score: C/O Chest Pain: N/A Risk Factors: Risk Factors: DM, Current or recent (<one month) smoker, HTN, HLP, family history of CAD, obesity. Risk Scores: Score 0 - 3: 2.5% MACE over next 6 weeks - Discharge Home Score 4 - 6: 20.3% MACE over next 6 weeks - Admit for Clinical Observation Score 7 - 10: 72.7% MACE over next 6 weeks - Early Invasive Strategies (FERNANDA SAINI PRESIDENT AND CEO) Allergies: Allergies: Allergies Coded Allergies Type Severity Reaction Last Updated Verified Penicillins Allergy Intermediate 12/01/14 No levofloxacin Allergy Intermediate 12/18/14 No (FERNANDA SAINI PRESIDENT AND CEO) Physical Exam: PE: Constitutional: Morbidly obese patient. Well developed, well nourished, no acute distress, non-toxic appearance. [] HENT: Normocephalic, atraumatic, bilateral external ears normal, oropharynx moist, no oral exudates, nose normal. [] Midline uvula, airway is completely open. No throat tongue or lip swelling Eyes: PERRLA, EOMI, conjunctiva normal, no discharge. [] Neck: Normal range of motion, no tenderness, supple, no stridor. [] Cardiovascular:Heart rate regular rhythm, no murmur [] Lungs & Thorax: Bilateral breath sounds clear to auscultation [] Abdomen: Bowel sounds normal, soft, no tenderness, no masses, no pulsatile masses. [] Skin: Warm, dry, no erythema, no rash. [] Back: No tenderness, no CVA tenderness. [] Extremities: No tenderness, no cyanosis, no clubbing, ROM intact, no edema. [] Neurologic: Alert and oriented X 3, normal motor function, normal sensory function, no focal deficits noted. [] Psychologic: Appears anxious (FERNANDA SAINI PRESIDENT AND CEO) Current Patient Data: Vital Signs: Vital Signs Date Time Temp Pulse Resp B/P (MAP) Pulse Ox O2 Delivery O2 Flow Rate FiO2 06/24/21 15:20 98.6 115 24 250/127 (168) 100 Room Air 98.6 (FERNANDA SAINI PRESIDENT AND CEO) EKG: EKG: [] (FERNANDA SAINI PRESIDENT AND CEO) Radiology/Procedures: Radiology/Procedures: [] (FERNANDA SAINI PRESIDENT AND CEO) Course & Med Decision Making: Course & Med Decision Making Pertinent Labs and Imaging studies reviewed. (See chart for details) This a 46-year-old female patient with history of anxiety and hypertension who presents to the ED today complaining of sensation of her throat closing up, throat swelling, dry throat, symptoms began on the way from [place] to [place] diving with the daughter. She was seen in the ED in April for similar comp laints. Her airway is open, there is no throat, tongue or lip swelling. Her O2 sats are 100% on room air. Patient was reassured, her anxiety is likely causing her symptoms. I recommended she follows up with the PCP as well as [facility]. Patient's blood pressure was 250/127 with a heart rate of 115, patient has known history of hypertension, she states she has not taken her medicine for 2 days. In April she was seen in the ED with same elevated blood pressure, she also stated at that point she had not taken her BP medicines for a couple of days. This patient is noncompliant. I talked to her about the dangers of uncontrolled blood pressures. I requested she contacts her PCP tomorrow and follows up. She states she has blood pressure medicine at home. I emphasized the importance of taking her medicine every day as prescribed. I also encouraged her to try and exercise and lose some weight. (FERNANDA SAINI APRN) Course & Med Decision Making patient is non compliant with medication regimen, she has meds at home and as above will start taking. tachycardia likely 2/2 anxiety state. I have participated in the care of this patient and I have reviewed and agree with all pertinent clinical information above including history, exam, and recommendations. (EMILI URRUTIA DO) Dragon Disclaimer: Dragon Disclaimer: This electronic medical record was generated, in whole or in part, using a voice recognition dictation system. (FERNANDA SAINI APRN) Departure Departure Impression: Primary Impression: Anxiety attack Additional Impression: Accelerated hypertension Disposition: HOME / SELF CARE / HOMELESS Condition: STABLE Referrals: CHIP BARBOUR (PCP) follow up as soon as you can Patient Instructions: Anxiety and Panic Attacks, [id number], Hypertension Additional Instructions: You were evaluated in the emergency room, you appear to have an anxiety attack. Your blood pressure was also extremely high at 250/127. Please ensure you are taking your blood pressure medicine. Please consider going on a diet, try to exercise and lose some weight, this may help you high blood pressure. Please contact your primary care doctor tomorrow morning and set up a follow-up appointment FERNANDA SAINI APRN Jun 24, 2021 15:53 EMILI URRUTIA DO Jun 24, 2021 16:24
[2021-06-24 16:05] VITALS: BP 223/104
== END 2021-06-24 16:05 | disposition home or self-care (01) ==
LOC: ER 15:16
DX: F41.9 Anxiety disorder, unspecified (principal); I10 Essential (primary) hypertension; Z88.0 Allergy status to penicillin; Z88.1 Allergy status to other antibiotic agents
CPT/HCPCS: 99283